=== PATIENT | male | born 1935 | race Caucasian/White ===

== ENCOUNTER 2019-09-11 07:55 | Emergency (ER) | payer MEDICARE, OTHER ==
[~2019-09-11] VITALS: Ht 177.8 cm; Wt 65.9 kg
[2019-09-11] MEDS ORDERED: normal saline 1000ML IV soln IVB ONE (08:10)
[2019-09-11] MEDS ORDERED: LORazepam 2 mg/ml vial IV ONE (08:10)
[2019-09-11 08:33] LABS: BASOPHILS % (AUTO) 0.3 % (0-1); EOSINOPHILS % (AUTO) 0.1 % (0-6); HEMATOCRIT 38.7 % (42.0-52.0); HEMOGLOBIN 12.9 g/dl (14.0-17.9); LYMPHOCYTES # (AUTO) 0.6 X10'3 (1.1-4.8); LYMPHOCYTES % (AUTO) 7.6 % (21-51); MEAN CORPUSCULAR HEMOGLOBIN 28.4 PG (27.0-31.0); MEAN CORPUSCULAR HGB CONC 33.3 g/dL (33.0-36.5); MEAN CORPUSCULAR VOLUME 85.5 FL (78-98); MEAN PLATELET VOLUME 8.1 FL (7.4-10.4); MONOCYTES # (AUTO) 0.9 X10'3 (0-0.9); MONOCYTES % (AUTO) 11.5 % (2-12); NEUTROPHILS # (AUTO) 6.4 X10'3 (1.8-7.7); NEUTROPHILS % (AUTO) 80.5 % (42-75); PLATELET COUNT 238 X10'3 (140-440); RED BLOOD COUNT 4.53 X10'6 (4.70-6.10); WHITE BLOOD COUNT 7.9 X10'3 (4.5-11.0)
[2019-09-11 08:35] LABS: CLARITY,URINE CLEAR (Clear); COLOR,URINE YELLOW (Yellow); GLUCOSE, URINE NEGATIVE (Neg); KETONES,URINE NEGATIVE (Neg); LEUKOCYTE ESTERASE ,URINE NEGATIVE (Neg); NITRITES, URINE NEGATIVE (Neg); OCCULT BLOOD,URINE TRACE-INTACT (Neg); PROTEIN,URINE NEGATIVE (Neg); UROBILINOGEN,URINE 0.2 E.U/dL (0.2-1.0)
[2019-09-11 08:36] LABS: UA COLLECTION TYPE URINAL
[2019-09-11 08:44] LABS: BACTERIA,URINE NONE SEEN /HPF (Neg); HYALINE CASTS 0-3 /LPF (NEGATIVE); MUCUS STRANDS FEW /LPF (Neg); RBC,URINE 0-2 /HPF (0-2); SQUAMOUS EPITHELIAL CELL,UR FEW /LPF (FEW); WBC,URINE 0-4 /HPF (0-4)
[2019-09-11 08:54] LABS: ALANINE AMINOTRANSFERASE 24 U/L (12-78); ALBUMIN 3.8 G/DL (3.4-5.0); ALKALINE PHOSPHATASE 86 IU/L (46-116); ANION GAP 7 (8-16); ASPARTATE AMINO TRANSFERASE 34 U/L (10-37); BILIRUBIN,TOTAL 0.7 MG/DL (0.1-1.0); BLOOD UREA NITROGEN 20 MG/DL (7-18); BUN/CREATININE RATIO 17.9 (5.4-32.0); CALCIUM 9.3 MG/DL (8.5-10.1); CHLORIDE 104 MMOL/L (99-107); CREATININE 1.12 MG/DL (0.60-1.10); GLUCOSE 108 MG/DL (70-104); POTASSIUM 3.6 MMOL/L (3.5-5.1); SODIUM 140 MMOL/L (135-145); TOTAL CARBON DIOXIDE 28.9 MMOL/L (24-32); TOTAL PROTEIN 7.8 G/DL (6.4-8.2); eGFR 63 ML/MIN
[2019-09-11 11:18] VITALS: BP 118/45
--- NOTE | 2019-09-11 11:19 | NUR ---
no family member information in past chart, pt is confused and can not recall a family members number. pt is dc and awaiting transport but no family can be called. according to ems family was going to head down to er
--- NOTE | 2019-09-11 12:29 | NUR ---
FOUND BED BUG ON PATIENT DURING DC.
== END 2019-09-11 12:35 | disposition home or self-care (01) ==
LOC: ER 07:56
DX: S51.812A Laceration without foreign body of left forearm, initial encounter (principal); M62.81 Muscle weakness (generalized); E86.0 Dehydration; F03.90 Unspecified dementia, unspecified severity, without behavioral disturbance, psychotic disturbance, mood disturbance, and anxiety; R41.82 Altered mental status, unspecified; I48.91 Unspecified atrial fibrillation; W18.39XA Other fall on same level, initial encounter; Y93.89 Activity, other specified; Y92.89 Other specified places as the place of occurrence of the external cause; Y99.8 Other external cause status
CPT/HCPCS: 36415; 71045; 80053; 81001; 85025; 93005; 96361; 96374; 99285; J2060; J7030

== ENCOUNTER 2019-10-26 05:30 | Emergency (ER) | payer OTHER, MEDICARE ==
[~2019-10-26] VITALS: Ht 180.3 cm; Wt 77.3 kg
[2019-10-26] MEDS ORDERED: normal saline 1000ML IV soln IVB ONE (06:00)
[2019-10-26 06:04] LABS: BASOPHILS % (AUTO) 0.5 % (0-1); EOSINOPHILS # (AUTO) 0.1 X10'3 (0-0.9); EOSINOPHILS % (AUTO) 1.5 % (0-6); HEMATOCRIT 36.7 % (42.0-52.0); HEMOGLOBIN 12.2 g/dl (14.0-17.9); LYMPHOCYTES # (AUTO) 0.9 X10'3 (1.1-4.8); LYMPHOCYTES % (AUTO) 18.1 % (21-51); MEAN CORPUSCULAR HEMOGLOBIN 28.7 PG (27.0-31.0); MEAN CORPUSCULAR HGB CONC 33.1 g/dL (33.0-36.5); MEAN CORPUSCULAR VOLUME 86.8 FL (78-98); MEAN PLATELET VOLUME 8.3 FL (7.4-10.4); MONOCYTES # (AUTO) 0.7 X10'3 (0-0.9); NEUTROPHILS # (AUTO) 3.5 X10'3 (1.8-7.7); NEUTROPHILS % (AUTO) 66.9 % (42-75); PLATELET COUNT 230 X10'3 (140-440); RED BLOOD COUNT 4.23 X10'6 (4.70-6.10); RED CELL DISTRIBUTION WIDTH 17.5 % (11.5-14.5); WHITE BLOOD COUNT 5.2 X10'3 (4.5-11.0)
[2019-10-26] MEDS ORDERED: FINA5TAB11 PO (06:06)
[2019-10-26] MEDS ORDERED: TRAZ-256 PO (06:06)
[2019-10-26] MEDS ORDERED: TRAM50TA2 PO (06:06)
[2019-10-26] MEDS ORDERED: FLO0.4C PO (06:06)
[2019-10-26] MEDS ORDERED: CARSR60C PO (06:06)
[2019-10-26] MEDS ORDERED: LEVO200T PO (06:06)
[2019-10-26] MEDS ORDERED: MELA5TAB12 PO (06:06)
[2019-10-26] MEDS ORDERED: PANT40SU2 PO (06:06)
--- NOTE | 2019-10-26 06:12 | NUR ---
ATTEMPTED EKG, WHICH IS READING EXTREME TACHYCARDIA, A LOT OF ARTIFACTS. PT NOT ABLE TO HOLD STILL. HIS RYTHM IS READING SR ON THE MONITOR AROUD 70'S. PT DENIES CHEST PAIN, PALPITATIONS, OR SOB.
[2019-10-26 06:19] LABS: ALANINE AMINOTRANSFERASE 15 U/L (12-78); ALBUMIN 3.4 G/DL (3.4-5.0); ALBUMIN/GLOBULIN RATIO 1.1 (1.1-1.5); ALKALINE PHOSPHATASE 75 IU/L (46-116); ANION GAP 5 (8-16); BILIRUBIN,TOTAL 0.5 MG/DL (0.1-1.0); BLOOD UREA NITROGEN 16 MG/DL (7-18); BUN/CREATININE RATIO 15.1 (5.4-32.0); CHLORIDE 106 MMOL/L (99-107); CREATININE 1.06 MG/DL (0.60-1.10); GLUCOSE 86 MG/DL (70-104); LIPASE 122 U/L (73-393); SODIUM 141 MMOL/L (135-145); TOTAL CARBON DIOXIDE 29.7 MMOL/L (24-32); TOTAL PROTEIN 6.6 G/DL (6.4-8.2); eGFR 67 ML/MIN
[2019-10-26] MEDS ORDERED: LIDOcaine 1% W/epiNEPHrine 1:100,000 20ml vial IJ ONE (06:20)
[2019-10-26 06:32] LABS: ASPARTATE AMINO TRANSFERASE 30 U/L (10-37); POTASSIUM 4.1 MMOL/L (3.5-5.1)
--- NOTE | 2019-10-26 07:31 | NUR ---
PT OUT TO CT VIA [facility] WITH SEWER AND INSPECTOR
--- NOTE | 2019-10-26 07:51 | NUR ---
pt returns from ct
--- NOTE | 2019-10-26 08:50 | NUR ---
APPLIED C COLLAR PER PROVIDERS VERBAL REQUEST
--- NOTE | 2019-10-26 09:00 | NUR ---
PT OUT TO MRI WITH MRI TECHS
--- NOTE | 2019-10-26 10:00 | NUR ---
PT RETURNS FROM MRI
--- NOTE | 2019-10-26 10:45 | NUR ---
Pt was incontinent of urine. Pt's wet depends removed, skin cleansed, pt used the urinal to void more urine, specimen obtained and sent to the lab. New depends placed on the patient, clean dry sweat pants. Pt's spouse spoke with Rhett Parmar RN and he gave the details of previous cervical spinal fracture to the ED provider. Pt's discharge to home is pending.
--- NOTE | 2019-10-26 11:06 | NUR ---
Pt's disposition is pending. No change in patient condition. Pt is resting in a postion of comfort with the c-collar intact. Pt has stable vitals.
[2019-10-26 11:10] LABS: CLARITY,URINE CLEAR (Clear); COLOR,URINE YELLOW (Yellow); GLUCOSE, URINE NEGATIVE (Neg); KETONES,URINE NEGATIVE (Neg); LEUKOCYTE ESTERASE ,URINE NEGATIVE (Neg); NITRITES, URINE NEGATIVE (Neg); OCCULT BLOOD,URINE NEGATIVE (Neg); PROTEIN,URINE NEGATIVE (Neg); UROBILINOGEN,URINE 0.2 E.U/dL (0.2-1.0)
[2019-10-26 11:13] LABS: UA COLLECTION TYPE CLN CATCH MIDSTREAM
--- NOTE | 2019-10-26 12:03 | NUR ---
Pt was pulling his c-collar off and ripping the foam padding off it. Dr. Clancy notified due to the injury from prior injury, he gave instruction to remove the collar. Pt's family phoned and a message left, awaiting return phone call.
--- NOTE | 2019-10-26 12:18 | NUR ---
CALLED FAMILY TO ADVISE THAT PT IS READY FOR DISCHARGE, FAMILY ON THEIR WAY
[2019-10-26 12:26] VITALS: BP 158/90
== END 2019-10-26 12:38 | disposition home or self-care (01) ==
LOC: ER 05:30
DX: S12.100A Unspecified displaced fracture of second cervical vertebra, initial encounter for closed fracture (principal); S01.01XA Laceration without foreign body of scalp, initial encounter; E03.9 Hypothyroidism, unspecified; Z79.899 Other long term (current) drug therapy; W18.30XA Fall on same level, unspecified, initial encounter; Y93.89 Activity, other specified; Y92.098 Other place in other non-institutional residence as the place of occurrence of the external cause; Y99.9 Unspecified external cause status
CPT/HCPCS: 12002; 36415; 70450; 71045; 72125; 72141; 80053; 81003; 83690; 85025; 93005; 99285; J7030